=== PATIENT | female | born 1945 | race Caucasian/White ===

== ENCOUNTER → 2017-08-29 | Outpatient (CLI) | payer MEDICARE ==
--- NOTE | 2017-08-30 12:50 | MR ---
EXAMINATION TYPE: MR brain/cspine wo/w DATE OF EXAM: 08/29/2017 COMPARISON: 01/16/2010 HISTORY: MS, TIA TECHNIQUE: Multiplanar, multisequence images of the brain and brainstem is performed without and with IV contras t, utilizing 7.5 mL intravenous Gadavist . FINDINGS: Brain: Diffusion weighted images demonstrate no evidence of a recent infarct or other diffusion abnor mality. There is no extra-axial fluid collection. Confluent nonenhancing T2/FLAIR hyperintense white matter changes are seen within the periventricular and subcortical white matter of the joseph radiat a and centrum semiovale no infratentorial plaques are seen. No white matter changes within the brains tem are visualized. Major intracranial flow voids are maintained. The ventricular system and cisterna l spaces are symmetrically prominent compatible with age-related volume loss as is thinning of the co rpus callosum symmetrically. Cerebellar folia prominence is also noted compatible with age-related vo lume loss. Incidental note is made of hyperostosis frontalis internus. Midline structures demonstrate normal morphology. The craniocervical junction appears within normal limits. Post contrast images demonstrate no abnormal enhancement. The dural venous sinuses appear pa tent. The visualized sinuses are clear and the globes are intact. Cervical spine: Cervical spine maintains normal vertebral body heights and alignment. Osseous signal is unremarkable other than a Schmorl's node of the inferior endplate of C5 and probable vertebral body hemangioma of T1. Multilevel intervertebral disc desiccation is present. Abnormal spinal cord signal is seen at C7- T1 measuring 9 mm that is T2 hyperintense, subtly PD hyperintense, and T1 isointense with no enhancem ent on image 7 of the sagittal T2 sequences most compatible with nonactive demyelinating plaque in th is patient with a known history of multiple sclerosis. C2-C3: No significant disc disease, neuroforaminal narrowing or spinal canal stenosis. C3-C4: Small central disc osteophyte complex and mild uncovertebral hypertrophy creates mild bilatera l neural foraminal narrowing. No spinal canal stenosis. C4-C5: Bilateral uncovertebral hypertrophy and facet arthropathy creates moderate right and mild left neural foraminal narrowing. Small broad-based disc bulge and disc osteophyte complex are seen with a nnular tear resulting in moderate spinal canal stenosis. Ligamentum flavum buckling is also seen at t his level. No abnormal cervical cord signal. C5-C6: Uncovertebral hypertrophy, facet arthropathy, and ligamentum flavum buckling are present as we ll as central disc osteophyte complex creating moderate spinal canal stenosis, moderate right neural foraminal narrowing and mild left neural foraminal narrowing. C6-C7: Uncovertebral hypertrophy and facet arthropathy are seen, left greater than right creating mil d left neural foraminal narrowing with patency of the right neural foramen and spinal canal. Small ce ntral disc osteophyte complex is present. C7-T1: No significant disc disease, neuroforaminal narrowing or spinal canal stenosis. No abnormal enhancement of the cervical spine is appreciated. Soft tissues also demonstrate no abnorm al enhancement. Within the thyroid gland there is a nonenhancing T2 hyperintense and T1 hypointense 5 mm left thyroid lesion. Typically thyroid ultrasound is recommended for greater than 1 cm lesions bu t could be considered. IMPRESSION: 1. No acute intracranial infarct or abnormal enhancement. Confluent periventricular and subcortical w mary matter changes within the centrum semiovale and joseph radiata are seen that are likely attribut able to the patient's known demyelinating disease and a component of chronic microangiopathy. No abno rmal enhancement or restricted diffusion are seen to indicate active myelination. 2. 9 mm nonenhancing T2 signal abnormality within the cervical cord at C7-T1 compatible with a nonact anibal demyelinating plaque. 3. Multilevel degenerative disc disease of the cervical spine resulting in moderate spinal canal sten osis at C4-C5 and C5-C6 and multilevel neural foraminal narrowing as described above. 4. No abnormal enhancement of the cervical spine. 5. Age-related supratentorial and infratentorial volume loss.
== END | disposition home or self-care (01) ==
LOC: RADMRIMAIN 10:33
PROVIDERS: ATTEND Psychiatry & Neurology Neurology
DX: R90.89 Other abnormal findings on diagnostic imaging of central nervous system (principal); M48.02 Spinal stenosis, cervical region; M99.71 Connective tissue and disc stenosis of intervertebral foramina of cervical region; M50.30 Other cervical disc degeneration, unspecified cervical region
CPT/HCPCS: 70553; 72156; A9581

== ENCOUNTER → 2019-07-20 | Outpatient (CLI) | payer MEDICARE ==
--- NOTE | 2019-07-20 16:03 | NM ---
EXAMINATION TYPE: NM bone scan whole body DATE OF EXAM: 07/20/2019 COMPARISON: Outside pelvic x-ray dated 07/17/2019 HISTORY: Radiculopathy of the lumbar region. Spondylosis without myelopathy. Idiopathic scoliosis. 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 Hip pain. Delayed whole-body scanning was performed following the injection of 25.1 mCi Tc 99m MDP. Images acq uired 3 hours post injection. FINDINGS: Typically degenerative uptake within the bilateral acromioclavicular joints and glenohumeral joints i s greater on the right than left. Symmetric degenerative uptake of the sacroiliac joints, ankles, elb ows, and wrists are seen. Slightly asymmetric (right greater than left) likely degenerative uptake is seen of the knees. Degenerative uptake of the femoral acetabular joints is presumed however there is more focal uptake in the left femoral head. No corresponding radiographic suspicious lesion is seen. On the prior outside x-rays dated 07/17/2019 arthropathy of the left hip is more advanced than on the right therefore findings are overall with degenerative. There is a reverse S-shaped scoliosis of the thoracolumbar spine. Uptake is seen throughout the spine that is most focal at L1 and T6. Correlatio n with radiographs is recommended. IMPRESSION: 1. Findings most likely relate to degenerative uptake within the axial and appendicular skeleton castaneda karla there is slight asymmetry in the shoulders (right greater than left), knees (right greater than l eft), and femoral acetabular joints (left greater than right). On the outside radiographs of the pelv is of 07/17/2019 arthropathy is more advanced on the left than right (concordant with nuclear medicine imaging). If there is further concern for left femoral osseous lesion MRI could be performed to asse ss for bone marrow replacing process. 2. Scoliosis of the thoracolumbar spine is mild and multifocal uptake is also likely degenerative. Ho wever there is more focal uptake at L1 and T6 and correlation with radiographs is recommended.
== END | disposition home or self-care (01) ==
LOC: RADNMMAIN 11:20
PROVIDERS: ATTEND Physical Medicine & Rehabilitation
DX: M41.85 Other forms of scoliosis, thoracolumbar region (principal); M25.551 Pain in right hip
CPT/HCPCS: 78306; A9503

== ENCOUNTER → 2019-10-12 | Outpatient (CLI) | payer MEDICARE ==
[2019-10-12 14:54] LABS: African American GFR (CKD) >90 (>60 ml/min/1.73 sqM); Blood Urea Nitrogen 10 mg/dL (7-17); Non-African American GFR(CKD) 90 (>60 ml/min/1.73 sqM)
--- NOTE | 2019-10-12 16:45 | CT ---
EXAMINATION TYPE: CT angio neck DATE OF EXAM: 10/12/2019 HISTORY: Carotid stenosis and dizziness. COMPARISON: NONE CT DLP: 192 mGycm. Automated Exposure Control for Dose Reduction was Utilized. TECHNIQUE: CTA scan of the neck is performed with IV Contrast, patient injected with 65ml mL of Isov ue 370, axial images are obtained, coronal and sagittal reformatted images are reviewed. Three-D oli nstructed images are created on an independent workstation and reviewed. FINDINGS: Carotid/Vascular Structures: There is three-vessel origin from the aortic arch. There is qyjc-rl-zbkt rate peripheral plaque without significant stenosis. Right common carotid artery shows normal origin from right brachiocephalic artery. There is moderate to severe calcified plaque right carotid bulb ex tending into proximal internal carotid artery. There is then more prominent noncalcified plaque causi ng significant stenosis of the right external carotid artery. Distal to this there is more prominent noncalcified plaque causing significant stenosis in the proximal internal carotid artery. Lumen diame ter is narrowed to 1.2 mm image 48 and reconstitutes to 4.1 mm distal to this axial image 53. Remaind er right internal carotid artery shows no significant plaque or stenosis. There is moderate calcified plaque in left carotid bulb extending into proximal internal and external carotid arteries. There is significant stenosis suspected complete occlusion of the left external ca rotid artery shortly after its origin image 48. There is no significant stenosis in the left internal carotid artery however. There is dominant right vertebral artery. Vertebral arteries are patent to basilar junction. Other: Incidental hyperostosis frontalis. Incidental mild emphysematous change and visualized upper l ungs. Prominent right paratracheal lymph node measuring 9 x 8 mm axial image 10 is nonspecific. Incid ental subcentimeter upper pole left thyroid nodule axial image 33. IMPRESSION: Significant stenosis bilateral external carotid arteries, suspected focal complete occlus ion on the left with reconstitution distally. Significant stenosis proximal right internal carotid ar marian calculated 70-75%.
== END | disposition home or self-care (01) ==
LOC: RADCTMAIN 14:00
PROVIDERS: ATTEND Surgery
DX: I65.23 Occlusion and stenosis of bilateral carotid arteries (principal)
CPT/HCPCS: 82565; 84520; 70498; 36415; Q9967

== ENCOUNTER 2019-11-16 10:30 | Inpatient (IN) | payer MEDICARE ==
[2019-11-15 08:57] VITALS: BMI 25.9
[2019-11-20] MEDS ORDERED: SODIUM CHLORIDE 0.9% 1,000 ML in EMPTY BAG 1 BAG IV ONE (05:49)
[2019-11-20] MEDS ORDERED: ASPIRIN 325 MG TAB PO STA (05:49)
[2019-11-20] MEDS ORDERED: ALPRAZolam 0.25 MG TAB PO PRN (05:49)
[2019-11-20] MEDS ORDERED: ALPRAZolam 0.5 MG TAB PO PRN (05:49)
[2019-11-20] MEDS ORDERED: CLOPIDOGREL 75 MG TAB PO STA (05:49)
[2019-11-20] MEDS ORDERED: NITROGLYCERIN SL TABS 0.4 MG TAB SUBLINGUAL PRN (05:49)
[2019-11-20 09:12] LABS: Glucose,Whole Blood 146 mg/dL (75-99)
[2019-11-20] MEDS ORDERED: SODIUM CHLORIDE 0.9% 1,000 ML IV ONE (09:16)
[2019-11-20 09:31] LABS: Basophils % (A) 1 %; Eosinophils # (A) 0.2 k/uL (0-0.7); Eosinophils % (A) 2 %; HCT 39.7 % (34.0-46.0); HGB 13.1 gm/dL (11.4-16.0); Lymphocytes # (A) 1.4 k/uL (1.0-4.8); Lymphocytes % (A) 22 %; MCH 30.5 pg (25.0-35.0); MCHC 33.1 g/dL (31.0-37.0); MCV 92.2 fL (80.0-100.0); Mean Platelet Volume 8.1; Monocytes # (A) 0.4 k/uL (0-1.0); Monocytes % (A) 6 %; Neutrophils # (A) 4.1 k/uL (1.3-7.7); Neutrophils % (A) 67 %; Platelet Count 184 k/uL (150-450); RDW 12.8 % (11.5-15.5); WBC 6.2 k/uL (3.8-10.6)
[2019-11-20] MEDS ORDERED: ASPIRIN 81 MG ONE (10:06)
[2019-11-20 10:21] LABS: African American GFR (CKD) >90 (>60 ml/min/1.73 sqM); Anion Gap 9 mmol/L; Blood Urea Nitrogen 12 mg/dL (7-17); Calcium 9.1 mg/dL (8.4-10.2); Carbon Dioxide 25 mmol/L (22-30); Chloride 107 mmol/L (98-107); Glucose 145 mg/dL (74-99); Non-African American GFR(CKD) >90 (>60 ml/min/1.73 sqM); Potassium 4.2 mmol/L (3.5-5.1); Sodium 141 mmol/L (137-145)
[2019-11-20] MEDS ORDERED: GLYCOPYRROLATE 0.2 MG/ML 2 ML VIAL ONE (10:39)
[2019-11-20] MEDS ORDERED: LABETALOL 5 MG/ML VIAL MDV ONE (10:39)
[2019-11-20] MEDS ORDERED: NITROGLYCERIN-D5W PMX 50 MG/250 ML BOTTLE IV ONE (10:39)
[2019-11-20] MEDS ORDERED: HEPARIN SODIUM,PORCINE 10,000 UNIT/ML 1 ML VIAL ONE (10:39)
[2019-11-20] MEDS ORDERED: PHENYLEPHRINE-0.9% NACL SYG 1 MG/10 ML SYRINGE ONE (10:39)
[2019-11-20] MEDS ORDERED: hydrALAZINE HCL 20 MG/ML 1 ML VIAL ONE (10:39)
[2019-11-20] MEDS ORDERED: DEXMEDETOMIDINE 200 MCG/2 ML VIAL IV ONE (10:39)
[2019-11-20] MEDS ORDERED: PROTAMINE SULFATE 10 MG/ML 5 ML VIAL IV ONE (10:39)
[2019-11-20] MEDS ORDERED: MIDAZOLAM 2 MG/2 ML VIAL ONE (10:39)
--- NOTE | 2019-11-20 10:54 | P.GSHP ---
History of Present Illness H&P Date: 11/20/19 Chief Complaint: Carotid stenosis 74-year-old female with history of MS, type 2 diabetes, and TIA's with left upper extremity weakness, numbness in the past presented to the office secondary to severe carotid stenosis involving the right internal carotid artery. Upon carotid Doppler demonstrated greater than 75-80% stenosis of the right internal carotid artery and therefore CT angiogram was obtained which demonstrated once again greater than 80% stenosis of the internal carotid artery with the lesion extending to approximately the C2-C3 level. She was seen in the office and discussion was had about possible intervention. Due to the fact that her right internal carotid artery has been symptomatic in the past as well as the level of the disease and her comorbidities including type 2 diabetes and her MS it was discussed the possibility utilization of TCAR and stenting. Patient presents today for such procedure. Past Medical History Past Medical History: Coronary Artery Disease (CAD), Cancer, CVA/TIA, Diabetes Mellitus, GERD/Reflux, Hyperlipidemia, Hypertension, Neurologic Disorder, Renal Disease Additional Past Medical History / Comment(s): left breast CA with masectomy 2005, pt. has MS, neuropathy, kidney problems from statins, states unsure if TIA or CVA, has left sided weakness, speech problems and memory loss History of Any Multi-Drug Resistant Organisms: None Reported Past Surgical History: Bladder Surgery, Breast Surgery Additional Past Surgical History / Comment(s): left mastectomy, bladder susp ension, colin cataract sx Past Anesthesia/Blood Transfusion Reactions: No Reported Reaction Smoking Status: Former smoker - Past Family History Mother Family Medical History: Diabetes Mellitus, Myocardial Infarction (CA) Additional Family Medical History / Comment(s): pt. states her mother at age 79 from an CA Father Family Medical History: Dementia, Myocardial Infarction (CA) Sister(s) Family Medical History: Dementia Additional Family Medical History / Comment(s): alzheimers Medications and Allergies Home Medications Medication Instructions Recorded Confirmed Type Aspirin [Adult Low Dose Aspirin EC] 81 mg PO DAILY 08/07/17 11/20/19 History Cholecalciferol (Vitamin D3) 2,000 units PO DAILY 08/07/17 11/20/19 History [Vitamin D3] Cyanocobalamin (Vitamin B-12) 1,000 mg PO DAILY 08/07/17 11/20/19 History [Vitamin B-12] Docusate [Colace] 200 mg PO BID 08/07/17 11/20/19 History metFORMIN HCL [Glucophage] 500 mg PO BID-W/MEALS 08/07/17 11/20/19 History Clopidogrel Bisulfate [Plavix] 75 mg PO DAILY #30 tab 08/08/17 11/20/19 Rx Atorvastatin [Lipitor] 40 mg PO HS 11/15/19 11/20/19 History Marcio/D3/Mag11/Zinc/Brass Wind Instrument Maker/Sanchez/Bor 2 each PO DAILY 11/15/19 11/20/19 History [Caltrate 600+D Plus Tablet] DULoxetine HCL [Cymbalta] 60 mg PO QAM 11/15/19 11/20/19 History Lisinopril [Zestril] 10 mg PO DAILY 11/15/19 11/20/19 History Ubidecarenone [Co Q-10] 100 mg PO DAILY 11/15/19 11/20/19 History Vitamin B Complex 1 each PO DAILY 11/15/19 11/20/19 History traZODone HCL 50 mg PO HS 11/15/19 11/20/19 History Allergies Allergy/AdvReac Type Severity Reaction Status Date / Time Penicillins Allergy Rash/Hives Verified 11/15/19 08:43 sulfamethoxazole Allergy Rash/Hives Verified 11/15/19 08:43 [From Bactrim] trimethoprim [From Bactrim] Allergy Rash/Hives Verified 11/15/19 08:43 Hmrigvb-Bmj-New Reductase AdvReac Voiding Verified 11/15/19 08:43 Inhibitor Dysfunction Surgical - Exam Vital Signs Temp Pulse Resp BP 98.1 F 71 16 174/75 11/20/19 09:06 11/20/19 09:06 11/20/19 09:06 11/20/19 09:06 - General well developed, well nourished - ENT normal pinna, normal nares - Neck no masses - Respiratory normal expansion - Cardiovascular Rhythm: regular - Abdomen Abdomen: non tender - Neurologic normal coordination, normal sensation - Psychiatric oriented to time, oriented to person, oriented to place Results - Labs 11/20/19 09:10 11/20/19 09:50 Abnormal Lab Results - Last 24 Hours (Table) 11/20/19 11/20/19 Range/Units 09:10 09:50 Glucose 145 H (74-99) mg/dL POC Glucose (mg/dL) 146 H (75-99) mg/dL Diabetes panel 11/20/19 Range/Units 09:50 Sodium 141 (137-145) mmol/L Potassium 4.2 (3.5-5.1) mmol/L Chloride 107 (98-107) mmol/L Carbon Dioxide 25 (22-30) mmol/L BUN 12 (7-17) mg/dL Creatinine 0.60 (0.52-1.04) mg/dL Glucose 145 H (74-99) mg/dL Calcium 9.1 (8.4-10.2) mg/dL Calcium panel 11/20/19 Range/Units 09:50 Calcium 9.1 (8.4-10.2) mg/dL Pituitary panel 11/20/19 Range/Units 09:50 Sodium 141 (137-145) mmol/L Potassium 4.2 (3.5-5.1) mmol/L Chloride 107 (98-107) mmol/L Carbon Dioxide 25 (22-30) mmol/L BUN 12 (7-17) mg/dL Creatinine 0.60 (0.52-1.04) mg/dL Glucose 145 H (74-99) mg/dL Calcium 9.1 (8.4-10.2) mg/dL Adrenal panel 11/20/19 Range/Units 09:50 Sodium 141 (137-145) mmol/L Potassium 4.2 (3.5-5.1) mmol/L Chloride 107 (98-107) mmol/L Carbon Dioxide 25 (22-30) mmol/L BUN 12 (7-17) mg/dL Creatinine 0.60 (0.52-1.04) mg/dL Glucose 145 H (74-99) mg/dL Calcium 9.1 (8.4-10.2) mg/dL Assessment and Plan Assessment: #1 right internal carotid artery stenosis #2 history of TIAs with left-sided symptoms #3 MS #4 type 2 diabetes Plan: Presents today for TCAR procedure
[2019-11-20] MEDS ORDERED: LIDOCAINE 1% INJ 10MG/ML (20 ML MDV) SQ ONE (11:09)
[2019-11-20] MEDS ORDERED: SODIUM CHLORIDE 0.9% 100 ML with ceFAZolin 2,000 MG IV ONE ×2 (11:10)
[2019-11-20] MEDS ORDERED: IV FLUID CONTINUATION 700 ML IV ONE (11:19)
[2019-11-20] MEDS ORDERED: GELATIN SPONGE,ABSORB (LARGE) 1 EACH SPONGE TOPICAL ONE (11:50)
[2019-11-20] MEDS ORDERED: THROMBIN (BOVINE) 5,000 UNIT VIAL TOPICAL ONE ×2 (11:50)
[2019-11-20] MEDS ORDERED: LACTATED RINGERS 1,000 ML IV ONE ×2 (12:02)
[2019-11-20] MEDS ORDERED: IOPAMIDOL-250 100ML BTL INTRAARTER ONE (12:32)
[2019-11-20] MEDS ORDERED: IV FLUID CONTINUATION 1,000 ML IV ONE ×2 (13:03)
[2019-11-20] MEDS ORDERED: ATROPINE SULFATE 0.1 MG/ML 10ML SYRINGE IV PRN (13:13)
[2019-11-20] MEDS ORDERED: RX INFO: IV CONTRAST WAS GIVEN 1 EACH MISC MISCELLANE PRN (13:13)
[2019-11-20] MEDS ORDERED: MAG HYDROX/AL HYDROX/SIMETH 30 ML CUP PO PRN (13:13)
--- NOTE | 2019-11-20 13:13 | P.OP ---
Date of Procedure: 11/20/19 Preoperative Diagnosis: 1. Right internal carotid artery stenosis greater than 80% 2. History of TIAs 3. Type 2 diabetes, MS Postoperative Diagnosis: Same Procedure(s) Performed: 1. Right trans carotid artery revascularization with stent placement (TCAR) 2. Ultrasound-guided left common femoral vein access 3. Right carotid angiogram 4. Cerebral oximetry monitoring Implants: 9 x 40 mm Enroute stent Anesthesia: local Surgeon: Matias Steele Estimated Blood Loss (ml): 20 Pathology: none sent Condition: stable Disposition: PACU Indications for Procedure: 74-year-old female with history of MS, type 2 diabetes and TIAs with left upper extremity weakness, numbness in the past presented to the office secondary to severe carotid stenosis involving the right internal carotid artery. Upon carotid Doppler and CT angiogram the right internal carotid artery demonstrated greater than 80% stenosis with lesion extending to the C2-C3 level and therefore TCAR was recommended. She presents today for such procedure. Operative Findings: Contrast 40 mL Fluoroscopy time 7.9 minutes Description of Procedure: After written informed consent was obtained the patient all risks benefits and complications were described patient was brought to the [facility] and laid in a supine position. The area of the neck and groin was prepped and draped in usual sterile fashion after appropriate anesthetic was performed per the anesthesiology. Timeout was performed in normal fashion and antibiotics were administered prior to incision. A transverse incision was then created approximately 1 fingerbreadth above the clavicle with a 10 blade scalpel and dissection was carried down with electrocautery between the heads of the sternocleidomastoid muscle. The common carotid artery was then dissected free in a circumferential manner and controlled with umbilical tape. Once controlled attention was then placed to placing the pursestring suture. A 6-0 Prolene suture was utilized to place a pursestring suture at the anterior surface of the carotid artery. Attention was then placed to the femoral vein on the left. Utilizing ultrasound guidance the left common femoral vein was accessed and utilizing Seldinger technique the 8-Guamanian venous sheath was placed. Patient was administered heparin and followed with serial ACTs for appropriate heparinization. Once ACT was above 250 the common carotid artery was accessed with a multipurpose needle, wire was placed followed by a 4-Guamanian sheath. Carotid angiogram was then obtained demonstrating greater than 80% stenosis of the internal carotid artery just after the bifurcation and extending 20 mm. A 14 wire was then placed and the external carotid artery followed by the 4-Guamanian sheath. The inner cannula and wire were then removed and the stiff wire was placed into the external carotid artery. This was followed by the 8-Guamanian arterial sheath and the and Route system was connected in normal fashion. The sheath was then sutured in place both in the groin and the neck. TCAR timeout was then performed prior to clamping. The blood pressure was over 140s and heart rate was above 60. The artery was then clamped and reversal flow was visualized. 014 wire was then placed across the lesion followed by a 5 x 30 mm Mathias balloon and balloon angioplasty was performed. Further reversal was allowed for approximately 2 minutes and then a 9 x 40 mm and Route stent was placed across the lesion. Angiogram was obtained which demonstrated some slow filling and therefore postdilatation was performed with a 5 x 30 mm Mathias balloon. Final angiogram was obtained demonstrating good brisk flow through the internal carotid artery with almost complete resolution of the stenosis. There was probably residual of 10% or less once completed. Patient was neurologically intact throughout the entirety of the procedure, history of oximetry did not drop below 66 from a baseline of 68 and was following commands. All guidewires and catheters were then removed the flow reversal was reestablished. Per string suture was then secured the incision was then closed in a multilayer fashion skin was cleansed and dressings were placed. Patient tolerated procedure well the femoral sheath was removed and pressure was held for hemostasis. Patient was administered protamine for reversal of the heparin. She tolerated the procedure well and was sent to PACU for recovery.
[2019-11-20] MEDS ORDERED: HYDROcodone/APAP 5-325MG 1 EACH TAB PO PRN (13:17)
[2019-11-20 13:33] LABS: Glucose,Whole Blood 120 mg/dL (75-99)
[2019-11-20 14:33] LABS: Glucose,Whole Blood 108 mg/dL (75-99)
--- NOTE | 2019-11-20 15:10 | IR ---
Fluoroscopy HISTORY: Right Carotid stenosis 7.9 minutes fluoroscopy time supplied to the referring clinician. 385 intraoperative C-arm images do cument the procedure. See dictated report from vascular surgery.
[2019-11-20] MEDS: CLEVIDIPINE BUTYRATE 25 MG in EMPTY BAG 1 BAG IV SCH (15:41)
--- NOTE | 2019-11-20 16:01 | P.CNPUL ---
History of Present Illness Consult date: 11/20/19 Requesting physician: Matias Steele Reason for consult: other (ICU management) Chief complaint: Right carotid artery stenosis History of present illness: This is a 74-year-old female with history of recently diagnosed right internal carotid artery stenosis greater than 80%, she had history of TIAs, type 2 diabetes, MS, patient underwent today elective right carotid endarterectomy. Postoperatively patient was admitted to the ICU, and I was asked to see her on consultation. Her blood pressure was noted to be elevated with systolic of 150, and diastolic of 90, patient was placed on clevidipine drip, and this will be titrated accordingly. During my evaluation, the patient was feeling well, she denied any headache, no blurred vision, no dizziness, no nausea no vomiting no abdominal pain, no melena, no hematemesis. No dysuria and no frequency no urgency. Patient will be in the ICU overnight, and she would like to be discharged home tomorrow. Review of Systems Constitutional: Denies fever chills weight loss.. HEENT: Denies any earache, no sore throat, Pulmonary: No cough no wheezing no shortness of breath. No chest pain. Cardiac: Denies any palpitations denies any chest pain, denies any syncope. GI: Denies nausea vomiting abdominal pain melena or hematemesis. Genitourinary: Denies any dysuria frequency or urgency.. [place] skeletal: History of MS, presently under control. Asymptomatic, presented with left leg weakness. Psychiatric: Denies any symptoms of active depression. Neurologic: History of MS, and generalized muscle weakness. Skin: Denies any rashes. Hematologic: Denies any clotting bleeding or bruising. Past Medical History Past Medical History: Coronary Artery Disease (CAD), Cancer, CVA/TIA, Diabetes Mellitus, GERD/Reflux, Hyperlipidemia, Hypertension, Neurologic Disorder, Renal Disease Additional Past Medical History / Comment(s): left breast CA with masectomy 2005, pt. has MS, neuropathy, kidney problems from statins, states unsure if TIA or CVA, has left sided weakness, speech problems and memory loss History of Any Multi-Drug Resistant Organisms: None Reported Past Surgical History: Bladder Surgery, Breast Surgery Additional Past Surgical History / Comment(s): left mastectomy, bladder suspension, colin cataract sx Past Anesthesia/Blood Transfusion Reactions: No Reported Reaction Smoking Status: Former smoker - Past Family History Mother Family Medical History: Diabetes Mellitus, Myocardial Infarction ([place]) Additional Family Medical History / Comment(s): pt. states her mother at age 79 from an [place] Father Family Medical History: Dementia, Myocardial Infarction ([place]) Sister(s) Family Medical History: Dementia Additional Family Medical History / Comment(s): alzheimers Medications and Allergies Home Medications Medication Instructions Recorded Confirmed Type Aspirin [Adult Low Dose Aspirin EC] 81 mg PO DAILY 08/07/17 11/20/19 History Cholecalciferol (Vitamin D3) 2,000 units PO DAILY 08/07/17 11/20/19 History [Vitamin D3] Cyanocobalamin (Vitamin B-12) 1,000 mg PO DAILY 08/07/17 11/20/19 History [Vitamin B-12] Docusate [Colace] 200 mg PO BID 08/07/17 11/20/19 History metFORMIN HCL [Glucophage] 500 mg PO BID-W/MEALS 08/07/17 11/20/19 History Clopidogrel Bisulfate [Plavix] 75 mg PO DAILY #30 tab 08/08/17 11/20/19 Rx Atorvastatin [Lipitor] 40 mg PO HS 11/15/19 11/20/19 History Marcio/D3/Mag11/Zinc/Donor Relations Associate/Sanchez/Bor 2 each PO DAILY 11/15/19 11/20/19 History [Caltrate 600+D Plus Tablet] DULoxetine HCL [Cymbalta] 60 mg PO QAM 11/15/19 11/20/19 History Lisinopril [Zestril] 10 mg PO DAILY 11/15/19 11/20/19 History Ubidecarenone [Co Q-10] 100 mg PO DAILY 11/15/19 11/20/19 History Vitamin B Complex 1 each PO DAILY 11/15/19 11/20/19 History traZODone HCL 50 mg PO HS 11/15/19 11/20/19 History Allergies Allergy/AdvReac Type Severity Reaction Status Date / Time Penicillins Allergy Rash/Hives Verified 11/15/19 08:43 sulfamethoxazole Allergy Rash/Hives Verified 11/15/19 08:43 [From Bactrim] trimethoprim [From Bactrim] Allergy Rash/Hives Verified 11/15/19 08:43 [id number] Reductase AdvReac Voiding Verified 11/15/19 08:43 Inhibitor Dysfunction Physical Exam Vitals: Vital Signs Temp Pulse Pulse Pulse Resp BP BP 11/20/19 15:15 64 15 11/20/19 15:00 68 18 11/20/19 14:45 61 16 11/20/19 14:30 97.4 F L 58 L 18 11/20/19 14:00 56 L 16 11/20/19 13:45 60 16 11/20/19 13:30 57 L 18 11/20/19 13:15 64 16 11/20/19 12:58 97.1 F L 68 16 11/20/19 09:16 98.1 F 71 16 186/98 11/20/19 09:06 98.1 F 71 16 174/75 BP BP BP Pulse Ox 11/20/19 15:15 97 11/20/19 15:00 98 11/20/19 14:45 97 11/20/19 14:30 98 11/20/19 14:00 124/58 143/48 98 11/20/19 13:45 132/45 97 11/20/19 13:30 105/53 146/40 97 11/20/19 13:15 133/39 97 11/20/19 12:58 104/53 124/57 94 L 11/20/19 09:16 174/75 99 11/20/19 09:06 Intake and Output 11/20/19 11/20/19 11/20/19 06:59 14:59 22:59 Intake Total 1550 Output Total 1520 Balance 30 Intake: IV 1550 Output: Urine 1500 Estimated Blood Loss 20 Other: Weight 71.4 kg ABP, PAP, CO, CI - Last 8 Hours Arterial Blood Pressure 137/40 Arterial Blood Pressure 149/45 Arterial Blood Pressure 148/46 Arterial Blood Pressure 142/45 Physical Exam: Revealed 74-year-old female in no distress. Head: Atraumatic, normocephalic. HEENT:[Neck is supple.] [No neck masses.] [No thyromegaly.] [No JVD.] Right neck surgical site was noted to be clean with sterile dressing no evidence of swelling and no evidence of hematoma. Chest: [Clear throughout, no crackles, no rhonchi, no wheezes.] Cardiac Exam: [Normal S1 and S2, no S3 gallop, no murmur.] Abdomen: [Soft, nontender, no megaly, no rebound, no guarding, normal bowel sounds.] Extremities: [No clubbing, no edema, no cyanosis.] Neurological Exam: [No focal neurologic deficit.] Alert oriented 3. Psychiatric: Normal mood affect and normal mental status examination. Skin: No rashes. Results - Laboratory Findings CBC and BMP: 11/20/19 09:10 11/20/19 09:50 Abnormal lab findings: Abnormal Labs 11/20/19 11/20/19 11/20/19 09:10 09:50 13:30 Glucose 145 H POC Glucose (mg/dL) 146 H 120 H 11/20/19 14:21 Glucose POC Glucose (mg/dL) 108 H Assessment and Plan Assessment: Impression: Status post right carotid endarterectomy Benign essential hypertension History of TIA History of MS Type 2 diabetes without complications. Recommendation: Resume home meds. Start patient on clevidipine drip and titrate to blood pressure in the range of 110-120 systolic. Resume lisinopril as taken at home. Resume home diabetes medications. And close monitoring of sugars while in the ICU. Pain control. We'll continue to follow, patient will likely be discharged home tomorrow Time with Patient: Greater than 30
[2019-11-20 16:42] LABS: Glucose,Whole Blood 132 mg/dL (75-99)
[2019-11-20] MEDS: DOCUSATE 100 MG CAP PO SCH (20:05)
[2019-11-20 20:25] LABS: Glucose,Whole Blood 158 mg/dL (75-99)
[2019-11-20] MEDS ORDERED: traZODone HCL 50 MG TAB PO SCH (21:00)
[2019-11-21 03:18] LABS: Basophils # (A) 0.1 k/uL (0-0.2); Basophils % (A) 1 %; Eosinophils # (A) 0.1 k/uL (0-0.7); Eosinophils % (A) 1 %; HCT 32.8 % (34.0-46.0); HGB 11.4 gm/dL (11.4-16.0); Lymphocytes # (A) 1.4 k/uL (1.0-4.8); Lymphocytes % (A) 15 %; MCH 32.2 pg (25.0-35.0); MCHC 34.9 g/dL (31.0-37.0); MCV 92.4 fL (80.0-100.0); Mean Platelet Volume 8.4; Monocytes # (A) 0.4 k/uL (0-1.0); Monocytes % (A) 4 %; Neutrophils # (A) 7.5 k/uL (1.3-7.7); Neutrophils % (A) 78 %; Platelet Count 184 k/uL (150-450); RBC 3.55 m/uL (3.80-5.40); RDW 13.1 % (11.5-15.5); WBC 9.5 k/uL (3.8-10.6)
[2019-11-21 03:24] LABS: African American GFR (CKD) >90 (>60 ml/min/1.73 sqM); Anion Gap 7 mmol/L; Blood Urea Nitrogen 9 mg/dL (7-17); Calcium 8.7 mg/dL (8.4-10.2); Carbon Dioxide 24 mmol/L (22-30); Chloride 108 mmol/L (98-107); Glucose 151 mg/dL (74-99); Non-African American GFR(CKD) >90 (>60 ml/min/1.73 sqM); Potassium 3.9 mmol/L (3.5-5.1); Sodium 139 mmol/L (137-145)
[2019-11-21] MEDS ORDERED: POTASSIUM CHLORIDE ER 20 MEQ TAB.ER PO SCH (04:00)
[2019-11-21] MEDS: CLEVIDIPINE BUTYRATE 25 MG in EMPTY BAG 1 BAG IV SCH (05:35)
[2019-11-21 06:42] LABS: Glucose,Whole Blood 153 mg/dL (75-99)
[2019-11-21] MEDS: INSULIN ASPART (NovoLOG) 100 UNIT/ML VIAL SQ SCH ×2 (06:45→13:26)
[2019-11-21] MEDS: DOCUSATE 100 MG CAP PO SCH (08:27)
[2019-11-21] MEDS ORDERED: NON FORMULARY DRUG (Ubidecarenone [Co Q-10] 100 MG) PO SCH (09:00)
[2019-11-21] MEDS ORDERED: LISINOPRIL 10 MG TAB PO SCH (09:00)
[2019-11-21] MEDS ORDERED: NON FORMULARY DRUG (Vitamin B Complex [Vitamin B Complex] 1 EACH) PO SCH (09:00)
[2019-11-21] MEDS ORDERED: DULoxetine HCL 60 MG CAPSULE.DR PO SCH (09:00)
[2019-11-21] MEDS ORDERED: ASPIRIN 81 MG PO SCH (09:00)
[2019-11-21] MEDS ORDERED: CYANOCOBALAMIN 500 MCG TAB PO SCH (09:00)
[2019-11-21] MEDS ORDERED: CLOPIDOGREL 75 MG TAB PO SCH ×2 (09:00→13:13)
[2019-11-21] MEDS ORDERED: CHOLECALCIFEROL 1,000 UNIT TAB PO SCH (09:00)
[2019-11-21] MEDS ORDERED: CALCIUM CARB-VIT D 500MG-200UN 1 EACH TAB PO SCH (09:00)
--- NOTE | 2019-11-21 09:37 | P.DS ---
Providers Date of admission: 11/20/19 08:31 Attending physician: Matias Steele DO Consults: 11/20/19 13:13 Consult Physician Routine Consulting Provider: Torsten Luna Consult Reason/Comments: icu management Do you want consulting provider notified?: Yes Consult Physician Routine Consulting Provider: Fran Pritchett Consult Reason/Comments: medical management Do you want consulting provider notified?: Yes Primary care physician: Fran Pritchett Hospital Course: Patient was seen and evaluated sitting up in the recliner. Patient is a 74-year-old female with a history of MS, type 2 diabetes and TIAs with severe carotid stenosis involving the right internal carotid artery. The patient underwent a right trans-carotid artery revascularization with stent placement (TCAR) yesterday with Dr. Steele. The patient's vital signs including blood pressure have been stable throughout the evening. Arterial line has been removed and Leiva catheter. Patient states she has mild discomfort in the right neck at surgical site, however is doing well otherwise. Patient tolerated her breakfast this morning. And remains afebrile. Assessment: General appearance: The patient is alert, oriented, in no acute distress. HET: Head is normocephalic and atraumatic. Pupils are equal and reactive. Oropharynx is clear without lesions. Neck: Supple. Dressing clean, dry and intact. No audible carotid bruit B/L. Heart: S1 S2. Regular rate and rhythm. Lungs: No crackles or wheezes are heard. Abdomen: Soft, nontender, nondistended with bowel sounds. No peritoneal signs. Groin: Left groin with mild ecchymosis, no active bleeding. No palpable hematoma. Extremities: Normal skin color and turgor. No cyanosis, rash, ulceration, clubbing, or edema. Radial and pedal pulses are 2/4 bilaterally. Neurological: No focal deficits. Strength and sensation are grossly intact. Assessment: Right internal carotid artery stenosis History of TIAs with left-sided symptoms Status post right trans-carotid artery revascularization with stent placement (TCAR) MS Type 2 diabetes Plan - Discharge Summary Discharge Rx Participant: Yes New Discharge Prescriptions: No Action Aspirin [Adult Low Dose Aspirin EC] 81 mg PO DAILY metFORMIN HCL [Glucophage] 500 mg PO BID-W/MEALS Cyanocobalamin (Vitamin B-12) [Vitamin B-12] 1,000 mg PO DAILY Cholecalciferol (Vitamin D3) [Vitamin D3] 2,000 units PO DAILY Docusate [Colace] 200 mg PO BID Clopidogrel Bisulfate [Plavix] 75 mg PO DAILY #30 tab traZODone HCL 50 mg PO HS DULoxetine HCL [Cymbalta] 60 mg PO QAM Atorvastatin [Lipitor] 40 mg PO HS Lisinopril [Zestril] 10 mg PO DAILY Vitamin B Complex 1 each PO DAILY Ubidecarenone [Co Q-10] 100 mg PO DAILY Marcio/D3/Mag11/Zinc/Tube Sizer And Cutter Operator/Sanchez/Bor [Caltrate 600+D Plus Tablet] 2 each PO DAILY Discharge Medication List Aspirin [Adult Low Dose Aspirin EC] 81 mg PO DAILY 08/07/17 [History] Cholecalciferol (Vitamin D3) [Vitamin D3] 2,000 units PO DAILY 08/07/17 [History] Cyanocobalamin (Vitamin B-12) [Vitamin B-12] 1,000 mg PO DAILY 08/07/17 [History] Docusate [Colace] 200 mg PO BID 08/07/17 [History] metFORMIN HCL [Glucophage] 500 mg PO BID-W/MEALS 08/07/17 [History] Clopidogrel Bisulfate [Plavix] 75 mg PO DAILY #30 tab 08/08/17 [Rx] Atorvastatin [Lipitor] 40 mg PO HS 11/15/19 [History] Marcio/D3/Mag11/Zinc/Tube Sizer And Cutter Operator/Sanchez/Bor [Caltrate 600+D Plus Tablet] 2 each PO DAILY 11/15/19 [History] DULoxetine HCL [Cymbalta] 60 mg PO QAM 11/15/19 [History] Lisinopril [Zestril] 10 mg PO DAILY 11/15/19 [History] Ubidecarenone [Co Q-10] 100 mg PO DAILY 11/15/19 [History] Vitamin B Complex 1 each PO DAILY 11/15/19 [History] traZODone HCL 50 mg PO HS 11/15/19 [History] Follow up Appointment(s)/Referral(s): Matias Steele DO [STAFF PHYSICIAN] - 2 Weeks Activity/Diet/Wound Care/Special Instructions: No heavy lifting or strenuous activity. Patient may shower. No tub baths. Discharge Disposition: HOME SELF-CARE
[2019-11-21 10:09] VITALS: TEMP 98
[2019-11-21 11:30] LABS: Hemoglobin A1C 8.2 % (4.0-6.0)
[2019-11-21 11:40] VITALS: BP 116/72; PULSE 67; RESP 18
[2019-11-21 12:03] LABS: Glucose,Whole Blood 135 mg/dL (75-99)
--- NOTE | 2019-11-21 15:03 | P.PN ---
Subjective Progress Note Date: 11/21/19 Principal diagnosis: Status post right carotid endarterectomy postoperative day #1 This is a 74-year-old female with history of recently diagnosed right internal carotid artery stenosis greater than 80%, she had history of TIAs, type 2 diabetes, MS, patient underwent today elective right carotid endarterectomy. Postoperatively patient was admitted to the ICU, and I was asked to see her on consultation. Her blood pressure was noted to be elevated with systolic of 150, and diastolic of 90, patient was placed on clevidipine drip, and this will be titrated accordingly. During my evaluation, the patient was feeling well, she denied any headache, no blurred vision, no dizziness, no nausea no vomiting no abdominal pain, no melena, no hematemesis. No dysuria and no frequency no urgency. Patient will be in the ICU overnight, and she would like to be discharged home tomorrow. Reevaluated today on 11/21/2019, patient is doing well, blood pressure seems to be fairly well controlled, she is back on her lisinopril. Off clevidipine drip, asymptomatic, patient will likely be discharged home today. Objective - Vital Signs Vital signs: Vital Signs Temp 98.0 F 11/21/19 09:00 Pulse 67 11/21/19 11:00 Resp 18 11/21/19 11:00 BP 116/72 11/21/19 11:00 Pulse Ox 95 11/21/19 11:00 Intake & Output 11/20/19 11/21/19 11/21/19 18:59 06:59 18:59 Intake Total 1775 895.384 422.767 Output Total 1885 1795 400 Balance -110 -899.616 22.767 Weight 71.4 kg 76.5 kg Intake: IV 1775 860 60 Sodium Chloride 0.9% 1, 225 860 60 000 ml In Empty Bag 1 bag @ 1 ML/KG/HR 68.492 mls/ hr IV .[id number] ONE Rx#: [id number] Intake, IV Titration 35.384 2.767 Amount Clevidipine Butyrate 25 35.384 2.767 mg In Empty Bag 1 bag @ 1 MG/HR 2 mls/hr IV .Q24H ASAD Rx#:[id number] Oral 360 Output: Urine 1865 1795 400 Estimated Blood Loss 20 Other: Voiding Method Indwelling Catheter Indwelling Catheter Indwelling Catheter # Bowel Movements 1 ABP, PAP, CO, CI - Last Documented Arterial Blood Pressure 142/47 - Exam Physical Exam: Revealed 74-year-old female in no distress. Head: Atraumatic, normocephalic. HEENT:[Neck is supple.] [No neck masses.] [No thyromegaly.] [No JVD.] Chest: [Clear throughout, no crackles, no rhonchi, no wheezes.] Cardiac Exam: [Normal S1 and S2, no S3 gallop, no murmur.] Abdomen: [Soft, nontender, no megaly, no rebound, no guarding, normal bowel sounds.] Extremities: [No clubbing, no edema, no cyanosis.] Neurological Exam: [No focal neurologic deficit.] Alert oriented 3. Psychiatric: Normal mood affect and normal mental status examination. Skin: No rashes. - Labs CBC & Chem 7: 11/21/19 03:00 11/21/19 03:00 Labs: Abnormal Lab Results - Last 24 Hours (Table) 11/20/19 11/20/19 11/21/19 Range/Units 16:31 20:14 03:00 RBC 3.55 L (3.80-5.40) m/uL Hct 32.8 L (34.0-46.0) % Chloride (98-107) mmol/L Glucose (74-99) mg/dL POC Glucose (mg/dL) 132 H 158 H (75-99) mg/dL Hemoglobin A1c (4.0-6.0) % 11/21/19 11/21/19 11/21/19 Range/Units 03:00 03:00 06:31 RBC (3.80-5.40) m/uL Hct (34.0-46.0) % Chloride 108 H (98-107) mmol/L Glucose 151 H (74-99) mg/dL POC Glucose (mg/dL) 153 H (75-99) mg/dL Hemoglobin A1c 8.2 H (4.0-6.0) % 11/21/19 Range/Units 11:51 RBC (3.80-5.40) m/uL Hct (34.0-46.0) % Chloride (98-107) mmol/L Glucose (74-99) mg/dL POC Glucose (mg/dL) 135 H (75-99) mg/dL Hemoglobin A1c (4.0-6.0) % Assessment and Plan Assessment: Impression: Status post right carotid endarterectomy, postoperative day #1. Benign essential hypertension History of TIA History of MS Type 2 diabetes without complications. Recommendation: Resume home meds. Discontinued clevidipine, Agree with discharge planning today. Time with Patient: Less than 30
== END 2019-11-21 13:24 | disposition home or self-care (01) | DRG 35 ==
LOC: 2ORMAIN 11-20 08:31 → 2SICU 11-20 13:00
PROVIDERS: ADMIT Surgery; ATTEND Surgery
PROC: 037K3DZ Dilation of Right Internal Carotid Artery with Intraluminal Device, Percutaneous Approach (ICD-10-PCS; principal; 2019-11-20 10:15)
DX: I65.21 Occlusion and stenosis of right carotid artery (principal); I69.954 Hemiplegia and hemiparesis following unspecified cerebrovascular disease affecting left non-dominant side; E11.40 Type 2 diabetes mellitus with diabetic neuropathy, unspecified; G35 Multiple sclerosis; I69.928 Other speech and language deficits following unspecified cerebrovascular disease; I69.911 Memory deficit following unspecified cerebrovascular disease; R40.2363 Coma scale, best motor response, obeys commands, at hospital admission; R40.2143 Coma scale, eyes open, spontaneous, at hospital admission; R40.2253 Coma scale, best verbal response, oriented, at hospital admission; I25.10 Atherosclerotic heart disease of native coronary artery without angina pectoris; E78.5 Hyperlipidemia, unspecified; I10 Essential (primary) hypertension; K21.9 Gastro-esophageal reflux disease without esophagitis; Z79.82 Long term (current) use of aspirin; Z79.02 Long term (current) use of antithrombotics/antiplatelets; Z79.84 Long term (current) use of oral hypoglycemic drugs; Z79.899 Other long term (current) drug therapy; Z87.891 Personal history of nicotine dependence; Z85.3 Personal history of malignant neoplasm of breast; Z88.0 Allergy status to penicillin; Z88.2 Allergy status to sulfonamides; Z88.8 Allergy status to other drugs, medicaments and biological substances; Z90.12 Acquired absence of left breast and nipple; Z87.448 Personal history of other diseases of urinary system; Z98.42 Cataract extraction status, left eye; Z98.41 Cataract extraction status, right eye; Z83.3 Family history of diabetes mellitus; Z82.49 Family history of ischemic heart disease and other diseases of the circulatory system; Z82.0 Family history of epilepsy and other diseases of the nervous system
CPT/HCPCS: 37215; 80048; 83036; 85025; 86850; 86900; 86901

== ENCOUNTER → 2020-04-14 | Outpatient (CLI) | payer MEDICARE ==
--- NOTE | 2020-04-14 12:20 | MR ---
"EXAMINATION TYPE: MR brain/cspine wo/w DATE OF EXAM: 04/14/2020 COMPARISON: 08/29/2017 MRI brain and cervical spine HISTORY: Imbalance, multiple sclerosis TECHNIQUE: Multiplanar, multisequence images of the brain and brainstem is performed without and with IV contras t, utilizing 7 mL intravenous Gadavist . FINDINGS: BRAIN: Diffusion weighted images demonstrate no evidence of a recent infarct or other diffusion abnormality. There is no extra-axial fluid. There is redemonstration of confluent T2/FLAIR hyperintense white ma tter change in Ventricular and subcortical white matter of the joseph radiata and centrum semiovale. No cerebellar p laques are seen. Patchy T2/FLAIR hyperintensity in the [place] and medulla are unchanged without discret e measurable lesion. Degree of involvement is severe and overall unchanged from 08/29/2017. The ventr icular system and cisternal spaces are symmetrically prominent compatible with age-related volume los s. Corpus callosal thinning is again noted, likely age-related atrophy. Incidental note is made of h yperostosis frontalis internus. Midline structures demonstrate normal morphology. The craniocervical junction appears within normal limits. Post contrast images demonstrate no abnormal enhancement. The dural venous sinuses appear pa tent. The visualized sinuses are clear and the globes are intact. CERVICAL SPINE: Cervical spine maintains normal vertebral body heights and alignment. Again there is a probable verte bral body hemangioma at T1 to Schmorl's node is noted of C5. Multilevel disc desiccation is present. The previously seen abnormal 9 mm focus of hyperintensity on T2-weighted imaging without enhancement at C7-T1 on the prior of 2317 is better depicted on the prior exam and poorly demonstrated on today's exam. No increase in size nor abnormal enhancement. C2-C3: There is facet arthropathy resulting in minimal bilateral neural foraminal narrowing without s sydni canal stenosis.. C3-C4: There is a small central disc osteophyte complex and uncovertebral hypertrophy creating mild t o moderate bilateral neural foraminal narrowing without spinal canal stenosis. C4-C5: Disc osteophyte complex and uncovertebral hypertrophy as well as ligamentum flavum buckling ar e redemonstrated creating moderate to severe right and mild to moderate left neural foraminal narrowi ng and moderate spinal canal stenosis. C5-C6: Broad-based disc bulge that is right eccentric with disc osteophyte complex in combination wit h uncovertebral hypertrophy and facet arthropathy creating moderate to severe right neural foraminal narrowing, mild left neural foraminal narrowing and moderate spinal canal stenosis. C6-C7: Small central disc osteophyte complex, facet arthropathy and uncovertebral hypertrophy as well as minimal ligamentum flavum buckling create moderate to severe right and moderate left neural hamlet inal narrowing without significant spinal canal stenosis. C7-T1: Disc desiccation. No neuroforaminal narrowing or spinal canal stenosis. Similar 5 mm left thyroid nonenhancing lesion. Lack of flow void and enhancement in the right common carotid artery, carotid bulb and proximal right internal carotid artery. CTA neck is recommended for further evaluation. There appears to be reconstitution in the more distal cervical portion of the rig ht internal carotid artery. IMPRESSION: 1. Lack of flow void is seen and lack of enhancement in the right common carotid artery, carotid bulb and proximal right internal carotid artery appearing as complete occlusion. CTA neck recommended for confirmation. 3. Severe and confluent but overall stable white matter change in keeping with the patient's known de myelinating disease and likely additional component of chronic microangiopathy. No abnormal enhanceme nt or restricted diffusion are seen to indicate active myelination. 4. The previously seen abnormal 9 mm area of T2 hyperintensity in the cervical cord at C7-T1 is much less conspicuous on today's examination than the prior and demonstrates no abnormal enhancement to gregg ggest active demyelination. 5. Mild progression in the multilevel degenerative disc disease of the cervical spine. Again there is resultant moderate spinal canal stenosis at C4-C5 and C5-C6 and variable degree neural foraminal det louie above age level. 6. No abnormal enhancement of the cervical spine. A Yellow level critical message alert has been initiated for Davis Min DO via the [facility] 0 | Critical Results System on 04/14/2020 12:17 PM. This message alert has been sent to Davis Min DO via the preferences provided by the clinician for the receipt of Radiology Critical Findings. [facility] ID [id number]."
== END | disposition home or self-care (01) ==
LOC: RADMRIMAIN 09:52
PROVIDERS: ATTEND Psychiatry & Neurology Neurology
DX: M48.02 Spinal stenosis, cervical region (principal); M50.30 Other cervical disc degeneration, unspecified cervical region; G37.9 Demyelinating disease of central nervous system, unspecified; R90.89 Other abnormal findings on diagnostic imaging of central nervous system; I65.21 Occlusion and stenosis of right carotid artery; G35 Multiple sclerosis
CPT/HCPCS: 70553; 72156; A9585

== ENCOUNTER → 2021-12-21 | Outpatient (CLI) | payer MEDICARE ==
--- NOTE | 2021-12-25 14:59 | MM ---
Reason for exam: additional evaluation requested from prior study. Last mammogram was performed 13 years and 3 months ago. History: Patient is postmenopausal and has history of breast cancer at age 60. Family history of premenopausal breast cancer in grandmother. Mastectomy of the left breast, 2005. Chemotherapy, 2005. Took tamoxifen for 2 years beginning at age 61. Physical Findings: Nurse did not find any significant physical abnormalities on exam. MG 3D Diag Mammo W/Cad RT CC and MLO view(s) were taken of the right breast. Prior study comparison: November 03, 2020, mammogram, performed at [place]. October 27, 2020, mammogram, performed at [place]. June 15, 2019, mammogram, performed at [place]. October 25, 2018, mammogram, performed at [place]. October 19, 2018, mammogram, performed at [place]. October 05, 2016, mammogram, performed at [place]. The breast tissue is heterogeneously dense. This may lower the sensitivity of mammography. Stable benign calcifications. Previous mammotome biopsy in the right breast. There is no discrete abnormality. No significant new findings when compared with previous films. These results were verbally communicated with the patient on 12/25/21. ASSESSMENT: Benign, BI-RAD 2 RECOMMENDATION: Follow-up diagnostic mammogram of the right breast in 1 year.
== END | disposition home or self-care (01) ==
LOC: RADMAMWWP 13:17
PROVIDERS: ATTEND Obstetrics & Gynecology
DX: R92.1 Mammographic calcification found on diagnostic imaging of breast (principal); Z85.3 Personal history of malignant neoplasm of breast; Z80.3 Family history of malignant neoplasm of breast; Z78.0 Asymptomatic menopausal state
CPT/HCPCS: 77065; G0279; 77061